=== PATIENT | male | born 1985 | race Caucasian/White ===

== ENCOUNTER 2023-06-18 22:16 | Emergency (ER) | payer MEDICAID, SELFPAY ==
[2023-06-18 22:17] VITALS: BP 147/89; PULSE 124; RESP 16; TEMP 37.3; O2SAT 94
--- NOTE | 2023-06-18 22:45 | EDS_ITS ---
HPI History of Present Illness Chief Complaint: General Illness Informant: patient Onset/Context/Timing Onset: Days (2) Context: Gradual Onset Timing: Continuous Quality: Aching, lightheaded Location: Generalized Worsened by: Nothing Relieved by: Nothing Narrative Narrative: Patient presents with lightheadedness and dizziness that has been getting worse over the last 2 days. Patient states he has been urinating more frequently over the last 2 days. Patient states he feels thirsty and has been drinking more fluids. Patient states he has generalized body aches as well. Patient admits to subjective chills but denies any fevers. Patient admits to some shortness of breath when his mouth gets dry. Patient states he has some discomfort at the end of urination but denies any burning with urination. Patient also admits to a generalized headache. Patient states nothing makes his symptoms worse and nothing makes them better. [facility] Medical History (Updated 06/18/23 @ 23:[address] Oleg Ding DO) Hypertension Home Medications doxycycline hyclate 100 mg tablet 100 mg PO BID #14 tabs 06/18/23 [Rx Last Taken Unknown] Allergy/AdvReac Type Severity Reaction Status Date / Time No Known Allergies Allergy Verified 06/18/23 22:19 Surgical History no surgical history no surgical history Social History Smoking Status: Current every day smoker tobacco type: cigarettes ROS ROS ED Constitutional Constitutional ED: Reports chills; Denies fever(s) Eyes Eyes: Denies blurry vision or change in vision ENT ENT ED: Denies rhinorrhea or sore throat Cardiovascular Cardiovascular: Denies chest pain or palpitations Respiratory/Chest Respiratory/Chest: Reports dyspnea; Denies cough Gastrointestinal Gastrointestinal: Denies nausea or vomiting Genitourinary Genitourinary ED: Reports dysuria and urinary frequency; Denies hematuria Musculoskeletal Musculoskeletal: Reports back pain, myalgias and neck pain Integumentary Denies abscess or rash Neurologic Neurologic: Reports headache(s); Denies weakness Endocrine Endocrinology: Reports polydipsia and polyuria Allergic/Immunologic Allergic/Immunologic ED: Denies mouth swelling or urticaria EXAM Physical Exam Const Vital Signs: 06/18/23 22:17 06/18/23 23:04 Temperature 99.2 F H Temperature Source Oral Pulse Rate 124 H Respiratory Rate 16 Respiratory Effort Normal Non-Labored Respiratory Pattern Normal Blood Pressure 147/89 H Blood Pressure Mean 108 Pulse Ox 94 Oxygen Delivery Method Room Air Positive well nourished and well developed General Appearance ED: well developed and NAD HEENT Reports dry mucous membranes Mouth ED: Yes dry mucous membranes Mouth: dry mucous membranes Neck supple and no JVD Resp normal respiratory effort and clear to auscultation bilaterally Cardio regular rhythm Rate: tachycardic GI normal to inspection, nondistended, normoactive bowel sounds and non-tender Palpation: soft Extremity normal to inspection General Extremety ED: Negative for edema or tenderness General Extremity: Negative for edema Neuro oriented x3, CN's II-XII intact bilaterally and no sensory deficits noted Sensorium / Orientation: alert Motor Exam: strength 5/5 throughout Psych mental status grossly normal Skin no rashes or lesions noted MDM MDM MDM Narrative Medical decision making narrative: Differential diagnosis includes diabetic ketoacidosis, viral illness, dehydration, sepsis, urinary tract infection, and pneumonia. CBC will be obtained to assess for leukocytosis and anemia. Comprehensive metabolic profile will be obtained to assess for hepatic function, renal function, and electrolyte abnormality. Serum acetone will be obtained to assess for ketoacidosis. Serum lactate will be obtained to assess for sepsis. Urinalysis will be obtained to assess for urinary tract infection. Chest x-ray will be obtained to assess for pneumonia. Lab Data Attestation: I reviewed the patient's lab results. Lab results narrative: CBC was reviewed. There is a slight leukocytosis of 13.0. The remainder is within normal limits. Comprehensive metabolic profile was reviewed and was essentially within normal limits. Glucose was slightly elevated at 146 anion gap was normal. Lactate was reviewed and was normal at 1.3. Urinalysis was reviewed. There were positive nitrates and a leukocyte esterase of 500. There were 10-25 white blood cells. Serum acetone was reviewed and was negative. Initial BGT was reviewed and was normal at 132. Labs: Laboratory Results - last 24 hr 06/18/23 06/18/23 06/18/23 22:45 23:02 23:07 WBC 13.0 H RBC 5.38 Hgb 15.5 Hct 46.2 MCV 85.9 MCH 28.8 MCHC 33.5 RDW Std Deviation 40.1 RDW Coeff of Yared 13.0 Plt Count 258 MPV 10.7 Immature Gran % (Auto) 0.500 Neut % (Auto) 76.5 H Lymph % (Auto) 8.2 L [place] % (Auto) 12.5 H Eos % (Auto) 1.9 Baso % (Auto) 0.4 Absolute Neuts (auto) 10.0 H Absolute Lymphs (auto) 1.07 Nucleated RBC % 0 Differential Comment SCANNED Sodium 137 Potassium 3.9 Chloride 108 H Carbon Dioxide 23.0 Anion Gap 6 BUN 18 Creatinine 1.02 Estim Creat Clear Calc 105.66 Est GFR (MDRD) Af Amer 104 Est GFR (MDRD) Non-Af 86 BUN/Creatinine Ratio 17.6 Glucose 146 H Lactic Acid 1.3 Calcium 8.4 L Total Bilirubin 0.20 AST 34 ALT 71 H Alkaline Phosphatase 104 Total Protein 7.7 Albumin 3.1 L Globulin 4.6 H Albumin/Globulin Ratio 0.7 L Urine Color Yellow Urine Clarity Sl. Cloudy Urine pH 6.0 Ur Specific [place] 1.015 Urine Protein 30 H Urine Glucose (UA) Normal Urine Ketones Negative Urine Occult Blood 150 H Urine Nitrite Positive H Urine Bilirubin Negative Urine Urobilinogen Normal Ur Leukocyte Esterase 500 H Urine RBC 0-5 SEEN Urine WBC 10-25 SEEN Ur Squamous Epith Cells 0 SEEN Urine Bacteria RARE Urine Mucus 0 SEEN Acetone Level NEGATIVE POC Glucose 132 H Radiography Chest X-Ray - ED: 1 View, Read by ED Physician, Read by Radiologist and No Acute Disease Diagnostic Testing: Clinical Impression(s) from Imaging Studies Chest X-Ray 06/18/23 22:56 IMPRESSION: Normal x-ray examination of the chest. Electronically Signed: Clemente Ribeiro MD at 23:16 EDT , Portable 1 view chest x-ray was obtained. On my independent interpretation, lung san are clear. There is normal cardiac silhouette. Bony thorax is normal. There is no acute process noted. Radiologist also interpreted the x- ray and agrees. Additional Tests and Interventions Additional Tests or Interventions: Urine culture was ordered. Urine GC and chlamydia PCR was ordered. Treatment and Re-Evaluation :: Patient was given IV fluids. Patient was given a dose of Rocephin here. Patient was given a prescription for doxycycline. Patient was instructed to follow-up with his primary care physician in 5 to 7 days. Patient was instructed return if worse in any way. Patient understood and was agreeable with the plan. All questions were answered. Discharge Plan Triage Chief Complaint: General Illness ED Provider: Oleg Ding Dx/Rx/DC Orders Clinical Impression: Urinary tract infection, Obesity (BMI 30-39.9) Instructions: ED Bladder Infection, Male (Adult) Prescriptions: New doxycycline hyclate 100 mg tablet 100 mg PO BID Qty: 14 0RF Primary Care Provider: Care Physician,No Primary Referrals: [facility] Doctor,Out of [Non-Staff] - 3-5 Days Disposition Disposition: Home, Self Care
[2023-06-18] MEDS: 0.9% Normal Saline (1000mL) 1,000 ML 1000 ML IV (22:50)
[2023-06-18 22:52] VITALS: BMI 36.7
--- NOTE | 2023-06-18 22:56 | RAD_ITS ---
STUDY: X-RAY CHEST REASON FOR EXAM: Male, 38 years old. Pain TECHNIQUE: Single AP portable view of the chest. COMPARISON: None. FINDINGS: The lungs are clear and expanded. There is no demonstrated pleural abnormality. Normal size heart. Normal mediastinum and johana. Normal visualized pulmonary arteries. Normal visualized aortic arch and descending thoracic aorta. Normal visualized thoracic spine. Normal visualized ribs, clavicles, and shoulders. There is no demonstrated abnormality of the visualized soft tissue structures of the upper abdomen. RAD/Chest 1 View (Portable) IMPRESSION: Normal x-ray examination of the chest. Electronically Signed: Clemente Ribeiro MD at 23:16 EDT ,
[2023-06-18 23:01] LABS: Absolute Lymphocyte Count 1.07 X10^3/uL (0.83-4.51); Basophil# 0.05 X10^3/uL; Basophil% 0.4 % (0-1); Eosinophil# 0.25 X10^3/uL; Eosinophils% 1.9 % (0-5); Hematocrit 46.2 % (40-54); Hemoglobin 15.5 g/dL (13.0-16.5); Lymphocyte # 1.07 X10^3/ul (0.83-4.51); Lymphocyte % 8.2 % (19-41); Mean Corp Hgb Conc 33.5 g/dL (32-36); Mean Corpuscular Hgb 28.8 pg (27.0-32.0); Mean Corpuscular Volume 85.9 fL (80-94); Mean Platelet Vol. 10.7 fl (6.2-12.0); Monocyte# 1.63 X10^3/uL; Monocyte% 12.5 % (0-10); NRBC Flagged by Analyzer 0 % (0-5); Neutrophil # 9.97 X10^3/uL (2.7-7.7); Neutrophil % 76.5 % (47-70); POSITIVE DIFFERENTIAL YES; Platelet Count 258 K/mm3 (150-450); RBC Distribution Width SD 40.1 fl (35.1-43.9); Red Blood Count 5.38 M/mm3 (4.6-6.2)
[2023-06-18 23:05] LABS: Differential Indicated SCAN CRITERIA MET
[2023-06-18 23:12] LABS: Mucous, Urine 0 SEEN /hpf (<or=2+); Squamous Epithelial Cells - UA 0 SEEN /hpf (0-5)
[2023-06-18 23:13] LABS: Color, Urine Yellow (Yellow); Glucose, Dipstick Normal (Normal); Ketone-Dipstick Negative (Negative); Leukocyte Esterase-Dipstick 500 /ul (Negative); Nitrite-Dipstick Positive (Negative); Occult Blood-Urine 150 /ul (Negative); Protein-Dipstick 30 mg/dl (Negative); Specific Gravity, Urine 1.015 (1.002-1.030); Urine Bilirubin Dipstick Negative (Negative); Urine Clarity Sl. Cloudy (Clear); Urine Urobilinogen Normal (Normal)
[2023-06-18 23:19] LABS: Bacteria RARE /hpf (None Seen); Red Blood Cells-Urine 0-5 SEEN /hpf (0-5); White Blood Cells 10-25 SEEN /hpf (0-5)
[2023-06-18 23:20] LABS: Bedside Glucose 132 mg/dL (74-106)
[2023-06-18 23:28] LABS: Differential Comment SCANNED
[2023-06-18 23:34] LABS: ALB/GLOB Ratio 0.7 RATIO (0.9-2.4); AST(SGOT) 34 U/L (15-37); Alanine Aminotransfer ALT/SGPT 71 U/L (16-61); Albumin, Serum 3.1 g/dL (3.2-5.0); Alkaline Phosphatase 104 U/L (45-117); Anion Gap 6 (5-15); BUN 18 mg/dL (7-18); BUN/Creat Ratio 17.6 RATIO (10-20); Calcium,Total 8.4 mg/dL (8.5-10.1); Chloride 108 mmol/L (98-107); Creatinine, Serum 1.02 mg/dL (0.70-1.30); EST Glomerular Filtration Rate 86 mL/min (>60); Est Glom Filt Rate - Afr Amer 104 mL/min (>60); Estimated Creatinine Clearance 105.66 ml/min; Globulin 4.6 g/dL (2.2-4.2); Glucose 146 mg/dL (74-106); Potassium 3.9 mmol/L (3.5-5.1); Protein, Total 7.7 g/dL (6.4-8.2); Sodium Level 137 mmol/L (136-145)
[2023-06-18 23:35] LABS: Lactic Acid 1.3 mmol/L (0.4-1.9)
[2023-06-18] MEDS: Ceftriaxone 1 GM/50 ML BAG IV (23:39)
== END 2023-06-18 23:56 | disposition home or self-care (01) ==
PROVIDERS: Emergency Provider Emergency Medicine; Visit Provider Emergency Medicine
DX: N39.0 Urinary tract infection, site not specified (principal); R51.9 Headache, unspecified; I10 Essential (primary) hypertension; E66.9 Obesity, unspecified; F17.210 Nicotine dependence, cigarettes, uncomplicated
CPT/HCPCS: 71045; 80053; 81001; 82009; 82962; 83605; 85025; 87077; 87086; 87088; 87186; 87491; 87591; 96361; 96365; 99283; J7030; A4216

== ENCOUNTER 2023-08-08 18:01 | Observation (INO) | payer MEDICAID, SELFPAY ==
[2023-08-08 18:04] VITALS: BP 132/92; PULSE 112; RESP 18; TEMP 36.3; O2SAT 93; BMI 39.5
[2023-08-08 19:11] VITALS: BMI 39.5
--- NOTE | 2023-08-08 19:11 | CT_ITS ---
We are attempting to reach an attending provider to discuss findings. An addendum with communication details will be sent when the communication is complete. STUDY: CT BRAIN WITHOUT CONTRAST REASON FOR EXAM: Male, 38 years old. Neuro deficit, acute, stroke suspected RADIATION DOSAGE (If Supplied By Facility): CTDIvol = ( ) mGy, DLP = ( ) mGycm TECHNIQUE: Transaxial CT imaging of the brain was performed without administration of intravenous contrast material. Individualized dose optimization techniques were used for this CT. COMPARISON: No relevant priors. FINDINGS: Normal soft tissue structures. Normal calvarium. Normal size ventricles and extra-axial spaces for the patient''s age. Normal white matter tracts of the cerebral hemispheres. Normal basal ganglia and thalami. Normal brainstem. Normal cerebellum. There is no intracranial hemorrhage. There are no findings of an acute ischemic infarction. Fluid level in the left maxillary and bilateral sphenoid sinuses. Mucosal thickening in the maxillary sinuses. CT/STROKE Brain/Head without Cont IMPRESSION: Acute sinusitis. No intracranial findings. Electronically Signed: Abiola Fry MD at 19:37 EST Reading Location ID and State: [id number] / Tel , Service support ,
--- NOTE | 2023-08-08 19:11 | EKG12_ITS ---
Test Reason : STROKE Blood Pressure : / mmHG Vent. Rate : 097 BPM Atrial Rate : 097 BPM P-R Int : 156 ms QRS Dur : 110 ms QT Int : 380 ms P-R-T Axes : 053 043 -04 degrees QTc Int : 482 ms Normal sinus rhythm Nonspecific T wave abnormality Prolonged QT Abnormal ECG Confirmed by NERISSA LIU, LEONARDO ([id number]), supervising editor trailer ANDRIA CAPONE ([id number]) on 08/13/2023 12:26:27 PM Referred By: Confirmed By:LEONARDO MULTANI MD
--- NOTE | 2023-08-08 19:12 | CT_ITS ---
We are attempting to reach an attending provider to discuss findings. An addendum with communication details will be sent when the communication is complete. EXAM: CT ANGIOGRAPHY HEAD AND NECK WITH INTRAVENOUS CONTRAST CLINICAL INDICATION: Neuro deficit, acute, stroke suspected TECHNIQUE: [place]/head and neck CT angiography protocol performed with intravenous contrast. This CT exam was performed using one or more of the following dose reduction techniques: automated exposure control, adjustment of the mA and/or kV according to patient size, and/or use of iterative reconstruction technique. MIP reconstructed images were created and reviewed. CONTRAST: IV 100mL [id number] COMPARISON: No relevant prior studies available. FINDINGS: HEAD: RIGHT ANTERIOR CEREBRAL ARTERY: Unremarkable. No occlusion or significant stenosis. Anterior communicating artery is present. No aneurysm. RIGHT MIDDLE CEREBRAL ARTERY: Unremarkable. No occlusion or significant stenosis. No aneurysm. RIGHT POSTERIOR CEREBRAL ARTERY: Unremarkable. No occlusion or significant stenosis. No aneurysm. RIGHT INTRACRANIAL INTERNAL CAROTID ARTERY: Unremarkable. No significant stenosis. No dissection or occlusion. RIGHT INTRACRANIAL VERTEBRAL ARTERY: Unremarkable. No significant stenosis. No dissection or occlusion. LEFT ANTERIOR CEREBRAL ARTERY: Unremarkable. No occlusion or significant stenosis. No aneurysm. LEFT MIDDLE CEREBRAL ARTERY: Unremarkable. No occlusion or significant stenosis. No aneurysm. LEFT POSTERIOR CEREBRAL ARTERY: Unremarkable. No occlusion or significant stenosis. No aneurysm. LEFT INTRACRANIAL INTERNAL CAROTID ARTERY: Unremarkable. No significant stenosis. No dissection or occlusion. LEFT INTRACRANIAL VERTEBRAL ARTERY: Unremarkable. No significant stenosis. No dissection or occlusion. BASILAR ARTERY: Unremarkable. No occlusion or significant stenosis. No aneurysm. OTHER VASCULATURE: No vascular malformation. NECK: RIGHT COMMON CAROTID ARTERY: Unremarkable. No significant stenosis. No dissection or occlusion. RIGHT EXTRACRANIAL INTERNAL CAROTID ARTERY: Unremarkable. No significant stenosis. No dissection or occlusion. RIGHT EXTERNAL CAROTID ARTERY: Unremarkable. No occlusion. RIGHT EXTRACRANIAL VERTEBRAL ARTERY: Unremarkable. No significant stenosis. No dissection or occlusion. LEFT COMMON CAROTID ARTERY: Unremarkable. No significant stenosis. No dissection or occlusion. LEFT EXTRACRANIAL INTERNAL CAROTID ARTERY: Unremarkable. No significant stenosis. No dissection or occlusion. LEFT EXTERNAL CAROTID ARTERY: Unremarkable. No occlusion. LEFT EXTRACRANIAL VERTEBRAL ARTERY: Unremarkable. No significant stenosis. No dissection or occlusion. BRACHIOCEPHALIC AND SUBCLAVIAN ARTERIES: Unremarkable as visualized. No occlusion or significant stenosis. LUNG APICES: Unremarkable as visualized. HEAD and NECK: BONES/JOINTS: Unremarkable. No discrete lytic or blastic abnormalities. SOFT TISSUES: Unremarkable. CAROTID STENOSIS REFERENCE USING NASCET CRITERIA: % ICA stenosis = (1 - narrowest ICA diameter/diameter of distal cervical ICA) x 100. Mild - <50% stenosis. Moderate - 50-69% stenosis. Severe - 70-94% stenosis. Near occlusion - 95-99% stenosis. Occluded - 100% stenosis. CT/STROKE CTA Head AND Neck W/Con IMPRESSION: Negative CTA carotid and CTA brain. Electronically Signed: Abiola Fry MD at 20:10 EST Reading Location ID and State: [id number] / Tel , Service support ,
[2023-08-08 19:13] VITALS: BP 154/77; PULSE 81; RESP 16; O2SAT 97
--- NOTE | 2023-08-08 19:13 | EDS_ITS ---
HPI History of Present Illness Chief Complaint: Dizziness Detail of Chief Complaint: , Which she defines as being drunk and off balance Informant: patient Onset/Context/Timing Onset: Hours (Approximately 2 hours ago) Context: Sudden Onset Timing: Continuous Quality and Location: Positive for Difficulty with Ambulation Onset: 1700 Current Severity: Mild Maximum Severity: Moderate Worsened by: Patient has trouble walking and veers to the left Relieved by: Nothing Associated Symptoms Associated Symptoms: Positive for Nausea; Negative for Headache, Vomiting or Chest Pain Narrative Narrative: Is a 38-year-old male who is obese with history of hypercholesterolemia and is a smoker. No family history of strokes in early age. He states he feels as if he is drunk and balance is off. Closing his eyes does not make a difference. Change in position does not make a difference. He denies any sensory or motor symptoms. He denies headache. He denies double vision. Prior similar symptoms: No Recent Illness/Hospitalization: No PFSH PFSH Medical History (Updated 08/08/23 @ 19:[address] Michael Tomas MD) Hypertension Home Medications atorvastatin 20 mg tablet 40 mg PO DAILY 08/08/23 [History Last Taken Unknown] Allergy/AdvReac Type Severity Reaction Status Date / Time No Known Allergies Allergy Verified 06/18/23 22:19 Social History (Updated 08/08/23 @ 19:[address] Michael Tomas MD) household members: significant other Smoking Status: Current every day smoker tobacco type: cigarettes substance use type: does not use ROS ROS ED Constitutional Constitutional ED: Denies chills, fever(s), subjective, sweats or weakness Eyes Eyes: Denies blurry vision, change in vision or diplopia ENT ENT ED: Denies ear pain, rhinorrhea or sore throat Cardiovascular Cardiovascular: Denies chest pain or palpitations Respiratory/Chest Respiratory/Chest: Denies cough, dyspnea or dyspnea on exertion Gastrointestinal Gastrointestinal: Reports nausea; Denies abdominal pain or vomiting Musculoskeletal Musculoskeletal: Denies arthralgias, back pain, myalgias or neck pain Integumentary Denies abscess or rash Neurologic Neurologic: Denies headache(s), paresthesias or weakness Psychiatric Psychiatric: Denies anxiety, depression or suicidal ideation Endocrine Endocrinology: Denies polydipsia, polyphagia or polyuria Hematologic/Lymphatic Hematologic/Lymphatic: Denies easy bleeding or easy bruising EXAM Physical Exam Const Vital Signs: 08/08/23 18:04 08/08/23 19:13 08/08/23 19:18 Temperature 97.4 F L Temperature Source Temporal Pulse Rate 112 H 81 Respiratory Rate 18 16 Respiratory Effort Respiratory Pattern Blood Pressure 132/92 H 154/77 H Blood Pressure Mean 105 102 Pulse Ox 93 97 Oxygen Delivery Method Room Air Room Air Room Air 08/08/23 19:25 Temperature Temperature Source Pulse Rate Respiratory Rate Respiratory Effort Normal Non-Labored Respiratory Pattern Normal Blood Pressure Blood Pressure Mean Pulse Ox Oxygen Delivery Method Positive well nourished, well developed and obese General Appearance ED: well developed and NAD Nutritional Appearance: obese HEENT Reports moist mucous membranes atraumatic Nose: other Other Details: Normal Eyes PERRL and EOMs intact bilaterally Eyes Narrative: There is no central nystagmus. With lateral gaze he does have nystagmus. General Eye ED: Negative for pale conjunctiva or scleral icterus Neck no lymphadenopathy, supple and no JVD Neck Narrative: No carotid bruit noted right or left. Chest Wall inspection of chest normal and palpation of chest normal Resp normal respiratory effort and clear to auscultation bilaterally Cardio no murmurs Rate: tachycardic Rhythm: regular rhythm Heart Sounds: S1 normal and S2 normal GI normal to inspection, nondistended, normoactive bowel sounds, soft to palpation, non-tender, non-distended and no masses Extremity normal to inspection General Extremety ED: Negative for deformity or edema General Extremity: Negative for deformity or edema Neuro oriented x3, CN's II-XII intact bilaterally and no sensory deficits noted Neuro Narrative: Has mild dysmetria right and left when standing up. Worse with eyes closed. Gait is observed and broad-based. He seems to drift to the left. Hans Coma Scale: document GCS findings Spontaneous Obeys Commands Oriented 15 Sensorium / Orientation: alert Speech: speech normal Gait (Neuro): Negative for normal gait Motor Exam: strength 5/5 throughout Psych mental status grossly normal Skin no wounds General Skin Exam: Negative for jaundice Lesions: no lesions Rashes: no rashes NIHSS NIHSS Initial: 1a Level of Consciousness: 0 1b LOC Questions (Score 2 if aphasic/stupor): 0 1c LOC Commands (Only score 1st attempt): 0 2 Best Gaze (If aphasic, use reflexive mvmts.): 0 3 Visual: 0 4 Facial Palsy: 0 5 Motor Arm Left: 0 6 Motor Leg Right: 0 6 Motor Leg Left: 0 7 Limb ataxia (Only + if out of proportion): 1 8 Sensory (Aphasia/stupor=0 or 1, coma=2): 0 9 Best Language: 0 10 Dysarthria (mute, coma=2, intubated=UN): 0 11 Extinction and Inattention (only scored if +): 0 Total Score: 1 MDM MDM MDM Narrative Medical decision making narrative: 2 hours of continuous dizziness described as spinning with a negative [place]- Hallpike maneuver concerned this represents a central event. Patient did have an negative eye askew test and negative hints test as well. Stroke order set was initiated. Stroke team was called. Lab Data Attestation: I reviewed the patient's lab results. Lab results narrative: White count is normal. Basic metabolic panel is unremarkable. Troponin is normal. Glucose is elevated at 157. On BMP glucose is 144 with a normal CO2 and anion gap. Labs: Laboratory Results - last 24 hr 08/08/23 08/08/23 19:14 19:20 WBC 7.8 RBC 5.26 Hgb 15.0 Hct 45.2 MCV 85.9 MCH 28.5 MCHC 33.2 RDW Std Deviation 40.9 RDW Coeff of Yared 13.2 Plt Count 293 MPV 10.2 Immature Gran % (Auto) 0.400 Neut % (Auto) 52.5 Lymph % (Auto) 30.1 [place] % (Auto) 12.7 H Eos % (Auto) 3.7 Baso % (Auto) 0.6 Absolute Neuts (auto) 4.1 Absolute Lymphs (auto) 2.35 Nucleated RBC % 0 PT 12.9 INR 1.0 APTT 28.3 Sodium 143 Potassium 4.0 Chloride 107 Carbon Dioxide 30.0 Anion Gap 6 BUN 16 Creatinine 1.07 Estim Creat Clear Calc 100.73 Est GFR (MDRD) Af Amer 98 Est GFR (MDRD) Non-Af 81 BUN/Creatinine Ratio 15.0 Glucose 144 H Calcium 9.0 Troponin I High Sens 5 POC Glucose 157 H Radiography Diagnostic Testing: Clinical Impression(s) from Imaging Studies Brain CT 08/08/23 19:11 IMPRESSION: Acute sinusitis. No intracranial findings. Electronically Signed: Abiola Fry MD at 19:37 EST Reading Location ID and State: [id number] / Tel , Service support , As sphenoid and maxillary sinusitis. We will treat with Augmentin once he passes dysphagia test Management Discussion w/another healthcare provider: Hospitalist, Shoe Caser ([facility] neurologist recommended MRI) and Radiologist Stroke Documentation Questions Stroke Team Activated: Yes Reviewed Inclusion/Exclusion criteria: Yes IV Thrombolytic Administered: No No contraindications from thrombolytic administration: Yes Risks, Benefits, Alternatives Discussed: No Discharge Plan Triage Chief Complaint: Dizziness ED Provider: Michael Tomas Dx/Rx/DC Orders Clinical Impression: Vertigo, Hypercholesterolemia, Ataxia, Elevated blood-pressure reading without diagnosis of hypertension Prescriptions: No Action atorvastatin 20 mg tablet 40 mg PO DAILY Patient Comments: TAKE 2 TABLETS BY MOUTH EVERY DAY Primary Care Provider: Care Physician,No Primary Referrals: Care Physician,No Primary [Primary Care Provider] - Disposition Disposition: Acute Care [facility]
[2023-08-08 19:28] LABS: Absolute Lymphocyte Count 2.35 X10^3/uL (0.83-4.51); Absolute Neutrophil Count 4.1 X10^3/uL (2.0-7.7); Basophil# 0.05 X10^3/uL; Basophil% 0.6 % (0-1); Eosinophil# 0.29 X10^3/uL; Eosinophils% 3.7 % (0-5); Hematocrit 45.2 % (40-54); Lymphocyte # 2.35 X10^3/ul (0.83-4.51); Lymphocyte % 30.1 % (19-41); Mean Corp Hgb Conc 33.2 g/dL (32-36); Mean Corpuscular Hgb 28.5 pg (27.0-32.0); Mean Corpuscular Volume 85.9 fL (80-94); Mean Platelet Vol. 10.2 fl (6.2-12.0); Monocyte# 0.99 X10^3/uL; Monocyte% 12.7 % (0-10); NRBC Flagged by Analyzer 0 % (0-5); Neutrophil # 4.11 X10^3/uL (2.7-7.7); Neutrophil % 52.5 % (47-70); Platelet Count 293 K/mm3 (150-450); RBC Distribution Width CV 13.2 % (11.6-14.6); RBC Distribution Width SD 40.9 fl (35.1-43.9); Red Blood Count 5.26 M/mm3 (4.6-6.2); White Blood Count 7.8 K/mm3 (4.4-11.0)
[2023-08-08 19:32] LABS: Bedside Glucose 157 mg/dL (74-106)
[2023-08-08 19:37] LABS: Prothrombin Time (Protime)PT. 12.9 SECONDS (11.7-14.9)
[2023-08-08 19:38] LABS: Partial Thromboplast Time 28.3 Seconds (24.1-36.2)
--- NOTE | 2023-08-08 19:40 | RAD_ITS ---
INDICATION: Neuro deficit, acute, stroke suspected EXAMINATION/TECHNIQUE: X-RAY - XR Chest 1 View COMPARISON: 06/18/2023. FINDINGS: LINES/DEVICES: None. LUNGS: No consolidation, edema or effusion. No pneumothorax. MEDIASTINUM AND CARDIOVASCULAR STRUCTURES: Cardiac silhouette not enlarged. Central airways and mediastinal contour are unremarkable. BONES AND SOFT TISSUES: Unremarkable. RAD/Chest 1 View IMPRESSION: No radiographic evidence of acute cardiopulmonary disease. Electronically Signed: Abiola Fry MD at 20:17 EST Reading Location ID and State: [id number] / Tel , Service support ,
[2023-08-08 19:46] LABS: Anion Gap 6 (5-15); BUN 16 mg/dL (7-18); Chloride 107 mmol/L (98-107); Creatinine, Serum 1.07 mg/dL (0.70-1.30); EST Glomerular Filtration Rate 81 mL/min (>60); Est Glom Filt Rate - Afr Amer 98 mL/min (>60); Estimated Creatinine Clearance 100.73 ml/min; Glucose 144 mg/dL (74-106); Sodium Level 143 mmol/L (136-145); Troponin-I HS 5 pg/mL (3.0-78.0)
--- NOTE | 2023-08-08 19:56 | HP.PCM.HOS_ITS ---
HPI - General General Date of Admission: 08/08/23 Date of Service: 08/08/23 Chief Complaint: Vertigo HPI Narrative HERACLIO MAHONEY, is a 38 M with a significant history of hyperlipidemia; morbid obesity; obstructive sleep apnea on CPAP who presents to department with Vertigo that started 2 hours before presentation. Of note patient was getting into a vehicle when the Vertigo started. The vertigo persisted for about 45 minutes. Also patient reports imbalance on his feet and some confusion. Also patient reports that a week ago he did a community service at the [employer] and next day he developed runny nose and nasal congestion. Emergency department doctor reported a continuous and unchanged nystagmus with Yannick-Hallpike maneuver. Currently pain telemetry neurologist evaluation NIH was 0. However the emergency department doctor examination NIH was 1; 1 was for [id number] test. [facility] Medical History Anxiety CPAP (continuous positive airway pressure) dependence Hypertension Sleep apnea Smoker Substance abuse Home Medications atorvastatin 20 mg tablet 40 mg PO DAILY 08/08/23 [History Last Taken Unknown] Allergy/AdvReac Type Severity Reaction Status Date / Time No Known Allergies Allergy Verified 06/18/23 22:19 Family History Other Diabetes Lung cancer Surgical History History of appendectomy Social History household members: significant other Smoking Status: Current every day smoker tobacco type: cigarettes substance use type: does not use ROS ROS Narrative Pertinent positives and pertinent negatives as noted in HPI. All other systems were reviewed and are negative Vital Signs Vital Signs Vital Signs: 08/08/23 18:04 08/08/23 19:13 08/08/23 19:18 Temperature 97.4 F L Temperature Source Temporal Pulse Rate 112 H 81 Respiratory Rate 18 16 Respiratory Effort Respiratory Pattern Blood Pressure 132/92 H 154/77 H Blood Pressure Mean 105 102 Pulse Ox 93 97 Oxygen Delivery Method Room Air Room Air Room Air 08/08/23 19:25 Temperature Temperature Source Pulse Rate Respiratory Rate Respiratory Effort Normal Non-Labored Respiratory Pattern Normal Blood Pressure Blood Pressure Mean Pulse Ox Oxygen Delivery Method Weight Weight: 132.177 kg Body Mass Index (BMI) 39.5 Physical Exam Narrative Physical exam: General: Well-nourished, well-developed. Head: Normocephalic, atraumatic, no tenderness Eyes: Vision is grossly intact. EOMI. Patient with lateral gaze nystagmus. ENT, no trauma, moist mucous membranes, no rhinorrhea Neck: Nontender, No thyromegaly. CVS: Regular rate and rhythm. S1-S2 present. No murmur, gallop or rub. Respiratory : clear to auscultation bilaterally, chest wall nontender Abdomen: Soft, nontender, nondistended, normal bowel sounds, no masses : Deferred Back: Nontender, no CVA tenderness Extremities: Nontender full range of motion, no trauma Skin: Normal color, no trauma, abrasions Neuro: Alert, oriented, cranial nerves II through XII grossly intact. No dysmetria with [id number] test. Psychiatry: Normal mood. Normal affect. Not depressed. Not anxious. Results Lab / Micro Data 08/08/23 19:20 08/08/23 19:20 Labs: Laboratory Results - last 24 hr 08/08/23 19:14: POC Glucose 157 H 08/08/23 19:20: WBC 7.8, RBC 5.26, Hgb 15.0, Hct 45.2, MCV 85.9, MCH 28.5, MCHC 33.2, RDW Std Deviation 40.9, RDW Coeff of Yared 13.2, Plt Count 293, MPV 10.2, Immature Gran % (Auto) 0.400, Neut % (Auto) 52.5, Lymph % (Auto) 30.1, [place] % (Auto) 12.7 H, Eos % (Auto) 3.7, Baso % (Auto) 0.6, Absolute Neuts (auto) 4.1, Absolute Lymphs (auto) 2.35, Nucleated RBC % 0, PT 12.9, INR 1.0, APTT 28.3, Sodium 143, Potassium 4.0, Chloride 107, Carbon Dioxide 30.0, Anion Gap 6, BUN 16, Creatinine 1.07, Estim Creat Clear Calc 100.73, Est GFR (MDRD) Af Amer 98, Est GFR (MDRD) Non-Af 81, BUN/Creatinine Ratio 15.0, Glucose 144 H, Calcium 9.0, Troponin I High Sens 5 Imagaing Radiology Impression Brain CT 08/08/23 19:11 IMPRESSION: Acute sinusitis. No intracranial findings. Electronically Signed: Abiola Fry MD at 19:37 EST Reading Location ID and State: [place] / Tel , Service support , ADDENDUM: 08/08/231955 IMPRESSION: Acute sinusitis. No intracranial findings. N.B. : The above Results were Read Back by Abiola Fry MD to Michael Tomas MD, and understanding confirmed on 08/08/2023 19:49:10 (ET). Electronically Signed: Abiola Fry MD at 19:37 EST Reading Location ID and State: [id number] / Tel , Service support , Assessment & Plan Assessment/Plan (1) Acute sphenoidal sinusitis: QUALIFIERS: Recurrence: not specified as recurrent Qualified Code(s): J01.30 - Acute sphenoidal sinusitis, unspecified (2) Acute maxillary sinusitis: QUALIFIERS: Recurrence: not specified as recurrent Qualified Code(s): J01.00 - Acute maxillary sinusitis, unspecified (3) Vertigo: (4) Ataxia: (5) Hypercholesterolemia: PLAN: Plan Vertigo Serial NINDS NIH Scale ordered Impression of head CT by radiology: Acute sinusitis. Upon my personal head CT image review: I agree with radiologist interpretation CT head and neck with no hemodynamically significant stenosis. Lipid profile and A1c ordered. Physical therapy, to work with patient. N.p.o. until bedside swallow eval. Daily aspirin. High intensity statin Permissive hypertension. Control blood pressure with labetalol for systolic blood pressure of more than 220 or diastolic blood pressure of more than 120. MRI/MRAM of head; brain; and neck. Echocardiogram ordered. Meclizine as needed ordered. DVT prophylaxis: SCDs ordered. Time spent in the patient's overall evaluation,decision-making process, review of diagnostic data, adjustment of management, discussion with other providers, nursing and ancillary staff involved in patient's care documentation, 50 minutes. Charges/Coding Visit Charges Inpatient E&M: 77941 Init Hosp L2
[2023-08-08 20:00] VITALS: BP 122/81; PULSE 81; RESP 18; O2SAT 98
--- NOTE | 2023-08-08 20:31 | ED.RN ---
CHIDI TORIBIO'Osbaldo PER DR CURRY
[2023-08-08] MEDS: Amox/Clavulanate 875 MG Tablet PO (20:35)
[2023-08-08 20:36] VITALS: BP 136/92; PULSE 81; RESP 16; O2SAT 98
--- NOTE | 2023-08-08 21:25 | ECHOD_ITS ---
Reason For Study: TIA/CVA Procedure This was a 2D Doppler, Color Flow transthoracic echocardiogram. Exam performed portable in patient room. Left Ventricle Normal left ventricle. The estimated ejection fraction is 55-60 %. Right Ventricle Normal right ventricle. Normal systolic function. Atria Normal left atrium. Normal right atrium. Cannot rule out tiny PFO. Mitral Valve The mitral valve is structurally normal. No prolapse or stenosis seen. Trivial mitral valve insufficiency. Tricuspid Valve Normal tricuspid valve. Trivial tricuspid valve insufficiency. Aortic Valve Normal aortic valve. Pulmonic Valve The pulmonic valve is not well visualized. Great Vessels Normal aortic root. Pericardium/Pleural No pericardial effusion. Medication Performed a rapid injection of agitated mix of 9 cc saline and 1cc air to assess for atrial septal defect. MMode/2D Measurements & Calculations LVIDd: 4.5 cm IVSd: 1.2 cm Ao root diam: 3.3 cm LVIDs: 3.2 cm LVPWd: 1.00 cm LA dimension: 4.4 cm RVDd: 3.6 cm FS: 29.3 % LAV(MOD-bp): 54.6 ml LA A4 area: 17.7 cm2 RA A4 area: 15.8 cm2 LAV(MOD-bp) Indexed: 21.8 ml/m2 LAV(MOD-sp2): 53.0 ml LAV(MOD-sp4): 45.3 ml TAPSE: 2.3 cm Time Measurements MV dec time: 0.18 sec Doppler Measurements & Calculations MV E max shaun: 84.8 cm/sec Lat Peak E' Shaun: 15.0 cm/sec Med Peak E' Shaun: 16.0 cm/sec MV A max shaun: 82.9 cm/sec E/E' lat: 5.7 E/E' med: 5.3 MV E/A: 1.0 MV V2 max: 88.6 cm/sec MV P1/2t max shaun: 89.3 cm/sec Ao V2 max: 144.9 cm/sec MV max P.1 mmHg MV P1/2t: 49.2 msec Ao max P.4 mmHg MV V2 mean: 44.4 cm/sec MV dec slope: 531.5 cm/sec2 MV mean P.97 mmHg MVA(P1/2t): 4.5 cm2 MV V2 VTI: 17.3 cm LV V1 max: 114.5 cm/sec PA V2 max: 111.1 cm/sec LV V1 max P.2 mmHg PA V2 mean: 76.8 cm/sec ECHO/Echo Complete Interpretation Summary The estimated ejection fraction is 55-60 %. Normal LV systolic function No significant valve abnormality No prior study to compare Ordering Physician: Jean Marie Griffin Performed By: Cristóbal Edmondson RCS
--- NOTE | 2023-08-08 21:25 | MRI_ITS ---
EXAM: MR HEAD WITHOUT INTRAVENOUS CONTRAST CLINICAL INDICATION: CVA. TECHNIQUE: Multiplanar and multisequence MR images of the brain were obtained without intravenous contrast. COMPARISON: CT head without contrast 08/08/2023. CTA head and neck 08/08/2023. FINDINGS: BRAIN AND EXTRA-AXIAL SPACES: Unremarkable. No intra- or extra-axial hemorrhage. No evidence of acute infarct. No intracranial mass or mass effect. There is preservation of the mast/white matter interface. Posterior fossa structures are unremarkable. Ventricles are appropriate for age. No hydrocephalus. Basal cisterns are patent. SELLA: Unremarkable. Normal sella turcica, pituitary gland, infundibular stalk, optic chiasm and hypothalamus. AUDITORY SYSTEM: Unremarkable. The internal auditory canals are patent. BONES/JOINTS: Unremarkable. No discrete lytic or blastic abnormalities. SINUSES: Moderate mucosal thickening of the ethmoid sinuses and sphenoid sinuses. Mild dorsal thickening in the maxillary sinuses.. MASTOID AIR CELLS: Unremarkable as visualized. Clear. ORBITS: Unremarkable as visualized. Both globes, extraocular muscles, optic nerves and retrobulbar fat appear unremarkable. VASCULATURE: Unremarkable as visualized. Normal flow voids in the major intracranial circulation. MRI/Brain without Contrast IMPRESSION: Moderate mucosal thickening of the ethmoid sinuses and sphenoid sinuses and mild mucosal thickening of the maxillary sinuses due to sinusitis. Otherwise negative MRI brain without contrast. Electronically Signed: Ike Bennett MD at 13:59 EST ,
[2023-08-08 21:44] VITALS: BMI 39.5
[2023-08-08 22:00] VITALS: BP 130/84; PULSE 86; RESP 16; TEMP 36.9; O2SAT 96
[2023-08-08 22:15] LABS: D-Dimer Quantitative (DVT/PE) 0.37 FEU/ug/m (0.27-0.49)
--- NOTE | 2023-08-08 23:57 | CPS ---
Pt brought in own CPAP for the night.
[2023-08-09 02:00] VITALS: BP 121/71; PULSE 90; RESP 16; TEMP 36.3; O2SAT 95
[2023-08-09 04:08] VITALS: BMI 39.5
[2023-08-09 06:00] VITALS: BP 114/70; PULSE 89; RESP 16; TEMP 36.3; O2SAT 96
[2023-08-09 08:22] LABS: Absolute Lymphocyte Count 2.06 X10^3/uL (0.83-4.51); Absolute Neutrophil Count 3.5 X10^3/uL (2.0-7.7); Basophil# 0.03 X10^3/uL; Basophil% 0.4 % (0-1); Eosinophil# 0.35 X10^3/uL; Eosinophils% 5.1 % (0-5); Hematocrit 43.8 % (40-54); Hemoglobin 14.4 g/dL (13.0-16.5); Lymphocyte # 2.06 X10^3/ul (0.83-4.51); Mean Corp Hgb Conc 32.9 g/dL (32-36); Mean Corpuscular Hgb 28.5 pg (27.0-32.0); Mean Corpuscular Volume 86.6 fL (80-94); Mean Platelet Vol. 10.5 fl (6.2-12.0); Monocyte# 0.91 X10^3/uL; Monocyte% 13.2 % (0-10); NRBC Flagged by Analyzer 0 % (0-5); Neutrophil # 3.48 X10^3/uL (2.7-7.7); Neutrophil % 50.7 % (47-70); Platelet Count 281 K/mm3 (150-450); RBC Distribution Width CV 13.2 % (11.6-14.6); RBC Distribution Width SD 41.1 fl (35.1-43.9); Red Blood Count 5.06 M/mm3 (4.6-6.2); White Blood Count 6.9 K/mm3 (4.4-11.0)
[2023-08-09 08:41] LABS: Anion Gap 5 (5-15); BUN 19 mg/dL (7-18); BUN/Creat Ratio 18.8 RATIO (10-20); Calcium,Total 8.8 mg/dL (8.5-10.1); Chloride 110 mmol/L (98-107); Cholesterol 189 mg/dL (200); Creatinine, Serum 1.01 mg/dL (0.70-1.30); EST Glomerular Filtration Rate 87 mL/min (>60); Est Glom Filt Rate - Afr Amer 105 mL/min (>60); Estimated Creatinine Clearance 106.71 ml/min; Glucose 201 mg/dL (74-106); High Density Lipoprotein 22 mg/dL; Sodium Level 140 mmol/L (136-145); Triglycerides 252 mg/dL; Very Low Density Lipoprotein 50 mg/dL (5-40)
[2023-08-09 10:00] VITALS: BP 130/70; PULSE 77; RESP 16; TEMP 35.9; O2SAT 95
[2023-08-09] MEDS: Aspirin 81 MG TAB.CHEW PO (11:00)
[2023-08-09] MEDS: Amox/Clavulanate 875 MG Tablet PO (11:00)
[2023-08-09 13:31] VITALS: BMI 39.5
[2023-08-09 14:00] VITALS: BP 127/72; PULSE 87; RESP 16; TEMP 36.7; O2SAT 95
--- NOTE | 2023-08-09 15:07 | DCINST_ITS ---
Discharge Instructions Diet Discharge Diet: No restrictions Activity Discharge Activity: Return to Normal Activity Weight Bearing Status: Full weight bearing Follow Up Care Test Results: Test results from this visit will be discussed in further detail at your follow- up appointment, if applicable. Discharge Plan Admission Admit Date/Time: 08/08/23 19:50 Primary Reason for Your Visit: Vertigo, CVA rule out Attending Provider: Howard Lopez Primary Care Provider: NICHOLAS GERMAN Consulting Providers: Jean Marie Griffin Instructions Additional Instructions / Restrictions: Please take 6 more days worth of Augmentin to complete 7-day course of antibiotics for your sinus infection. Please follow-up with your primary care doctor in the next 1 to 2 weeks. Discharge Orders/Prescriptions Prescriptions: New amoxicillin-pot clavulanate 875-125 mg Tablet 1 tab PO BID 6 Days Qty: 12 0RF Continued atorvastatin 20 mg tablet 40 mg PO DAILY Patient Comments: TAKE 2 TABLETS BY MOUTH EVERY DAY Referrals / Follow Up: NICHOLAS GERMAN [Other] Care Physician,No Primary [Non-Staff] - Disposition Disposition (needs filled in before D/C Order can be placed): Home, Self Care
--- NOTE | 2023-08-09 15:12 | PCM.DC.SUM ---
Providers Date of Admission: 08/08/23 Date of Discharge: 08/09/23 Primary Care Physician: NICHOLAS GERMAN Reason For Visit: VERTIGO Diagnosis Discharge Diagnosis (1) Acute sphenoidal sinusitis: Status: Acute Code(s): J01.30 - Acute sphenoidal sinusitis, unspecified Qualifiers: Recurrence: not specified as recurrent Qualified Code(s): J01.30 - Acute sphenoidal sinusitis, unspecified (2) Acute maxillary sinusitis: Status: Acute Code(s): J01.00 - Acute maxillary sinusitis, unspecified Qualifiers: Recurrence: not specified as recurrent Qualified Code(s): J01.00 - Acute maxillary sinusitis, unspecified (3) Vertigo: Status: Acute Code(s): R42 - Dizziness and giddiness (4) Ataxia: Status: Acute Code(s): R27.0 - Ataxia, unspecified (5) Hypercholesterolemia: Status: Acute Code(s): E78.00 - Pure hypercholesterolemia, unspecified Medications at Discharge Home Medications atorvastatin 20 mg tablet 40 mg PO DAILY 08/08/23 amoxicillin 875 mg-potassium clavulanate 125 mg tablet 1 tab PO BID 6 days #12 tabs 08/09/23 Hospital Course Operations None Procedures EKG, Transthoracic echo and - (MRI brain without contrast, chest x-ray, CTA head/neck, CT head without contrast) Summary of Care Provided Minutes Spent on Discharge: 35 Hospital Course: Patient is a 38-year-old male who presented to [facility] ED on 08/08/2023 with new onset vertigo. Short hospital course as noted below. Acute episode of vertigo, CVA ruled out: Presented with an episode of vertigo at home that lasted for about 1 hour. No previous history of vertigo. Vertigo started when patient was getting into his vehicle, persisted despite going inside to lay down. States the vertigo primarily felt like room spinning and he had imbalance on his feet. CT head without contrast on admit showed acute sinusitis status, no other changes. CTA head and neck was unremarkable. MRI brain was unremarkable. Echo showed normal EF, no valve abnormalities, otherwise unremarkable. EKG normal. Patient had no further episodes of vertigo during admission. Passed swallow evaluation without issue and walked around the floor without issue prior to discharge. ? Unclear etiology but high suspicion is that this episode of vertigo was secondary to his acute sinusitis infection as noted below. CVA ruled out by findings noted above. Recommend the patient return to the ED if symptoms recur, otherwise okay to follow-up with his PCP as needed. Acute sinusitis: CT head on admit showed acute sinusitis noted above. Patient reported URI symptoms of nasal congestion and runny nose for several days prior to this admission. Denied any significant ear discomfort. No significant lab abnormalities on this admission. ? Prescribed Augmentin on discharge with plan to complete 7-day course, stop date 08/14. Presumed type 2 diabetes: A1c 7.0% on admission. Patient and significant other noted that he has had elevated A1c values in the past as well. Has never taken any medications for diabetes management. ? Recommended close outpatient follow-up with PCP for discussion on possible treatment options. Given patient's obesity and only mildly elevated A1c, suspect he could be a good candidate for treatment with a GLP-1 agonist. Discharge diagnoses: ? Acute episode of vertigo, CVA ruled out ? Acute sinusitis ? Presumed type 2 diabetes ? Hyperlipidemia ? Obesity ? MIRELLA ? History of substance abuse Total clinical time spent by myself addressing the patient's medical issues, reviewing all the data, and collaborating with patient's care team: 35 minutes. Physical Exam Const alert, oriented x3, no apparent distress, healthy appearing and well nourished Constitutional Narrative: Pleasant male, obese, sitting comfortably in bed, conversing normally, no acute distress. General Appearance: cooperative and comfortable HEENT normocephalic, head/scalp atraumatic, hearing grossly normal bilaterally, nasal mucous membranes and turbinates normal and moist oral mucous membranes Eyes PERRL, EOMs intact bilaterally and conjunctivae normal Neck full ROM, no lymphadenopathy and supple Lymph Lymphatic: no lymphadenopathy noted Chest inspection of chest normal Resp normal respiratory effort, normal air movement, no use of accessory muscles and clear to auscultation bilaterally Cardio regular rate, regular rhythm, no murmurs and peripheral pulses 2+ throughout GI normal to inspection, nondistended, normoactive bowel sounds, soft to palpation, non-tender and non-distended Back/Spine normal ROM Extremity normal to inspection, full ROM and no pedal edema Skin no rashes or lesions noted Psych mental status grossly normal Weight / BMI Weight Weight: 132.177 kg Body Mass Index (BMI) 39.5 ABG / Lab / Microbiology Data 08/09/23 07:11 08/09/23 07:11 Laboratory: Laboratory Results - last 24 hr 08/08/23 19:14: POC Glucose 157 H 08/08/23 19:20: WBC 7.8, RBC 5.26, Hgb 15.0, Hct 45.2, MCV 85.9, MCH 28.5, MCHC 33.2, RDW Std Deviation 40.9, RDW Coeff of Yared 13.2, Plt Count 293, MPV 10.2, Immature Gran % (Auto) 0.400, Neut % (Auto) 52.5, Lymph % (Auto) 30.1, [place] % (Auto) 12.7 H, Eos % (Auto) 3.7, Baso % (Auto) 0.6, Absolute Neuts (auto) 4.1, Absolute Lymphs (auto) 2.35, Nucleated RBC % 0, PT 12.9, INR 1.0, APTT 28.3, D-Dimer Quant (PE/DVT) 0.37, Sodium 143, Potassium 4.0, Chloride 107, Carbon Dioxide 30.0, Anion Gap 6, BUN 16, Creatinine 1.07, Estim Creat Clear Calc 100.73, Est GFR (MDRD) Af Amer 98, Est GFR (MDRD) Non-Af 81, BUN/Creatinine Ratio 15.0, Glucose 144 H, Calcium 9.0, Troponin I High Sens 5 08/09/23 07:11: WBC 6.9, RBC 5.06, Hgb 14.4, Hct 43.8, MCV 86.6, MCH 28.5, MCHC 32.9, RDW Std Deviation 41.1, RDW Coeff of Yared 13.2, Plt Count 281, MPV 10.5, Immature Gran % (Auto) 0.600, Neut % (Auto) 50.7, Lymph % (Auto) 30.0, [place] % (Auto) 13.2 H, Eos % (Auto) 5.1 H, Baso % (Auto) 0.4, Absolute Neuts (auto) 3.5, Absolute Lymphs (auto) 2.06, Nucleated RBC % 0, Sodium 140, Potassium 4.0, Chloride 110 H, Carbon Dioxide 25.0, Anion Gap 5, BUN 19 H, Creatinine 1.01, Estim Creat Clear Calc 106.71, Est GFR (MDRD) Af Amer 105, Est GFR (MDRD) Non-Af 87, BUN/Creatinine Ratio 18.8, Glucose 201 H, Hemoglobin A1c 7.0 H, Calcium 8.8, Triglycerides 252 H, Cholesterol 189, LDL Cholesterol 117, VLDL Cholesterol 50 H, HDL Cholesterol 22 L Radiography Diagnostic Testing: Radiology Impression Brain CT 08/08/23 19:11 IMPRESSION: Acute sinusitis. No intracranial findings. Electronically Signed: Aboila Fry MD at 19:37 EST Reading Location ID and State: [place] / Tel , Service support , ADDENDUM: 08/08/231955 IMPRESSION: Acute sinusitis. No intracranial findings. N.B. : The above Results were Read Back by Abiola Fry MD to Michael Tomas MD, and understanding confirmed on 08/08/2023 19:49:10 (ET). Electronically Signed: Abiola Fry MD at 19:37 EST Reading Location ID and State: [place] / Tel , Service support , Head/Neck CTA 08/08/23 19:12 IMPRESSION: Negative CTA carotid and CTA brain. Electronically Signed: Abiola Fry MD at 20:10 EST Reading Location ID and State: [place] Dyson MD Tel , Service support , ADDENDUM: 08/08/232023 IMPRESSION: Negative CTA carotid and CTA brain. N.B. : The above Results were Read Back by Abiola Fry MD to Michael Tomas MD, and understanding confirmed on 08/08/2023 20:17:38 (ET). Electronically Signed: Abiola Fry MD at 20:10 EST Reading Location ID and State: [place] / Tel , Service support , Chest X-Ray 08/08/23 19:40 IMPRESSION: No radiographic evidence of acute cardiopulmonary disease. Electronically Signed: Abiola Fry MD at 20:17 EST , Brain MRI 08/08/23 21:25 IMPRESSION: Moderate mucosal thickening of the ethmoid sinuses and sphenoid sinuses and mild mucosal thickening of the maxillary sinuses due to sinusitis. Otherwise negative MRI brain without contrast. Electronically Signed: Ike Bennett MD at 13:59 EST , Echocardiogram 08/08/23 21:25 Interpretation Summary The estimated ejection fraction is 55-60 %. Normal LV systolic function No significant valve abnormality No prior study to compare Ordering Physician: Jean Marie Griffin Performed By: Cristóbal Edmondson RCS D/C Instructions Discharge Diet: No restrictions Weight Bearing Status: Full weight bearing Meaningful Use Info Meaningful Use Diagnoses (Choose all that apply): None applicable Discharge Plan Admission Admit Date/Time: 08/08/23 19:50 Primary Reason for Your Visit: Vertigo, CVA rule out Attending Provider: Howard Lopez Primary Care Provider: NICHOLAS GERMAN Consulting Providers: Jean Marie Griffin Instructions Additional Instructions / Restrictions: Please take 6 more days worth of Augmentin to complete 7-day course of antibiotics for your sinus infection. Please follow-up with your primary care doctor in the next 1 to 2 weeks. Discharge Orders/Prescriptions Prescriptions: New amoxicillin-pot clavulanate 875-125 mg Tablet 1 tab PO BID 6 Days Qty: 12 0RF Continued atorvastatin 20 mg tablet 40 mg PO DAILY Patient Comments: TAKE 2 TABLETS BY MOUTH EVERY DAY Referrals / Follow Up: NICHOLAS GERMAN [Other] Care Physician,No Primary [Non-Staff] - Disposition Disposition (needs filled in before D/C Order can be placed): Home, Self Care Charges/Coding Visit Charges Inpatient E&M: 23577 Disch Hosp >30min
== END 2023-08-09 15:12 | disposition home or self-care (01) ==
LOC: ED 19:59 → PCU 20:21
PROVIDERS: Admitting Provider Hospitalist; Emergency Provider Emergency Medicine; Visit Provider Hospitalist
DX: R42 Dizziness and giddiness (principal); E66.01 Morbid (severe) obesity due to excess calories; J01.30 Acute sphenoidal sinusitis, unspecified; E78.00 Pure hypercholesterolemia, unspecified; F17.210 Nicotine dependence, cigarettes, uncomplicated; J01.00 Acute maxillary sinusitis, unspecified; R27.0 Ataxia, unspecified; G47.33 Obstructive sleep apnea (adult) (pediatric); R03.0 Elevated blood-pressure reading, without diagnosis of hypertension; R41.0 Disorientation, unspecified; I10 Essential (primary) hypertension; Z68.39 Body mass index [BMI] 39.0-39.9, adult; R79.89 Other specified abnormal findings of blood chemistry
CPT/HCPCS: Q9957; 36415; 70450; 70496; 70498; 70551; 71045; 80048; 80061; 82962; 83036; 84484; 85025; 85379; 85610; 85730; 93005; 93306; 94762; 99221; 99285; 99406; Q9967; G0378